=== PATIENT | female | born 1940 | race Caucasian/White ===

== ENCOUNTER 2017-07-01 13:20 | Emergency (ER) | payer OTHER ==
[2017-07-01 13:28] VITALS: BMI 20.5
--- NOTE | 2017-07-01 14:52 | PDOC ---
Attending Attestation - HPI HPI: 07/01/17 15:51 Pt is a 77 yo F (poor historian) with a PMHx of COPD, Anemia, Dementia who presents to the ED with generalized weakness and dizziness. Patient is accompanied by daughter who states the patient has been more off balance and has been complaining of vertiginous like symptoms. Patients daughter is highly concerned and presents with patient to the ED for further evaluation. PCP: None - Physicial Exam PE: 07/01/17 15:51 GENERAL: Awake, alert, and fully oriented, in no acute distress HEAD: No signs of trauma EYES: PERRLA, EOMI, sclera anicteric, conjunctiva clear ENT: Auricles normal inspection, hearing grossly normal, nares patent, oropharynx clear without exudates. Moist mucosa NECK: Normal ROM, supple, no lymphadenopathy, JVD, or masses LUNGS: Breath sounds equal, clear to auscultation bilaterally. No wheezes, and no crackles HEART: Regular rate and rhythm, normal S1 and S2, no murmurs, rubs or gallops ABDOMEN: Soft, nontender, normoactive bowel sounds. No guarding, no rebound. No masses EXTREMITIES: Normal range of motion, no edema. No clubbing or cyanosis. No cords, erythema, or tenderness NEUROLOGICAL: Cranial nerves II through XII grossly intact. Normal speech, normal gait SKIN: Warm, Dry, normal turgor, no rashes or lesions noted. - Medical Decision Making 07/01/17 15:51 Documentation prepared by Diamante Beltrán, acting as medical claims assistant for Chelly Kiser DO <Diamante Beltrán - Last Filed: 07/01/17 16:44> - Resident Resident Name: Shaun Sanchez - ED Attending Attestation I have performed the following: I have examined & evaluated the patient, The case was reviewed & discussed with the resident, I agree w/resident's findings & plan, Exceptions are as noted - Medical Decision Making 07/01/17 14:52 I, Dr. Chelly Kiser DO, attest that this document has been prepared under my direction and personally reviewed by me in its entirety. I further attest, that it accurately reflects all work, treatment, procedures and medical decision -making performed by me. 07/01/17 17:24 a/p: 77yo female with dizziness, and hyperacusis on friday -off balance since -no focal neuro today -suspect metabolic derangement worsening neuro findings -will obtain labs, ua, head ct <Chelly Kiser - Last Filed: 07/01/17 17:25>
--- NOTE | 2017-07-01 15:13 | PDOC ---
History of Present Illness - General Chief Complaint: Weakness Stated Complaint: DIZZINESS Time Seen by Provider: 07/01/17 14:03 - History of Present Illness Initial Comments: 07/01/17 15:02 Pt is a 77 F with extensive PMH significant for COPD, dementia, gastric ulcer, anemia, "kidney problems", CAD who presents to ED accompanied by daughter-in- law with complaint of leg weakness and vertigo. Pt is a poor historian. Pt states she has had vertigo for years but it has been worse lately. She describes the room spinning intermittently throughout the day, but worse in the morning. Pt denies ringing of the ears, falls, fainting, seizures. Pt states her leg weakness has been ongoing for months/years but has worsened in the past few weeks. Per daughter in law, pt was more "wobbly on her feet" Sun when they went shopping. Pt called daughter in law this am because she was feeling weak and dizzy, and daughter in law felt pt was not herself and needed to come to ED. Past History - Past Medical History Allergies/Adverse Reactions: Allergies Allergy/AdvReac Type Severity Reaction Status Date / Time Sulfa (Sulfonamide Allergy Verified 07/01/17 13:23 Antibiotics) Home Medications: Ambulatory Orders Aspirin [ASA -] 81 mg PO DAILY 07/01/17 Dipyridamole 25 mg PO DAILY 07/01/17 Donepezil HCl [Aricept] 10 mg PO HS 07/01/17 Escitalopram Oxalate [Lexapro -] 10 mg PO DAILY 07/01/17 Ferrous Sulfate 325 mg PO DAILY 07/01/17 Pravastatin Sodium [Pravachol (Nf)] 40 mg PO HS 07/01/17 COPD: Yes Dementia: Yes GI Disorders: Yes (ULCER) - Surgical History GI Surgery: Yes - Suicide/Smoking/Psychosocial Hx Smoking History: Current every day smoker Have you smoked in the past 12 months: Yes Number of Cigarettes Smoked Daily: 20 Information on smoking cessation initiated: No Review of Systems - Review of Systems Able to Perform ROS?: Yes Is the patient limited Khmer proficient: No Constitutional: Yes: Symptoms Reported, See HPI, Weakness. No: Chills, Diaphoresis, Loss of Appetite, Malaise, Night Sweats HEENTM: Yes: Symptoms Reported, See HPI. No: Blurred Vision, Tearing, Recent change in vision, Double Vision Respiratory: Yes: Symptoms reported, See HPI, Shortness of Breath, SOB with Exertion. No: Cough, Wheezing Cardiac (ROS): Yes: Symptoms Reported, See HPI. No: Chest Pain, Irregular Heart Rate, Lightheadedness, Syncope, Chest Tightness ABD/GI: Yes: Symptoms Reported. No: Diarrhea, Difficulty Swallowing, Poor Fluid Intake, Vomiting : Yes: Symptoms Reported. No: Burning, Dysuria, Discharge, Frequency, Flank Pain, Hematuria Musculoskeletal: Yes: Symptoms Reported, Joint Pain, Muscle Weakness. No: Gout , Joint Swelling, Joint Stiffness Neurological: Yes: Symptoms reported, See HPI, Headache, Weakness, Unsteady Gait , Dizziness (vertigo). No: Seizure, Tingling, Tremors, Ataxia, Other *Physical Exam - Vital Signs Last Vital Signs Temp Pulse Resp BP Pulse Ox 97.9 F 69 19 151/95 98 07/01/17 13:24 07/01/17 13:24 07/01/17 13:24 07/01/17 13:24 07/01/17 13:24 - Physical Exam General Appearance: Yes: Appropriately Dressed (wearing 2 coats. Pt states she feels very cold) HEENT: positive: NIKHIL, Normal ENT Inspection, Normal Voice. negative: Pale Conjunctivae Neck: positive: Trachea midline, Normal Thyroid, Supple. negative: Tender, Carotid bruit Respiratory/Chest: positive: Lungs Clear, Normal Breath Sounds. negative: Chest Tender, Respiratory Distress, Accessory Muscle Use Cardiovascular: positive: Regular Rhythm, Regular Rate, S1, S2. negative: Edema , JVD, Murmur Vascular Pulses: Dorsalis-Pedis (R): 1+, Doralis-Pedis (L): 2+ Gastrointestinal/Abdominal: positive: Normal Bowel Sounds, Flat, Soft. negative : Tender, Organomegaly, Pulsatile Mass, Increased Bowel Sounds Musculoskeletal: positive: Normal Inspection (no cogwheel/clasp knife) Extremity: positive: Normal Capillary Refill, Normal Inspection, Normal Range of Motion Neurologic: positive: home visit field care manager II-XII NML intact, Fully Oriented, Alert, Normal Mood/ Affect, Normal Response, Motor Strength /5 ED Treatment Course - LABORATORY CBC & Chemistry Diagram: 07/01/17 15:50 07/01/17 15:50 Medical Decision Making - Medical Decision Making 07/01/17 15:34 Pt is a 77 F poor historian w/ PMH COPD, dementia, gastric ulcer, anemia, unclear hx of renal disease, and CAD who presented to ED after 2 days of increased vertigo, and increased weakness of the legs. #r/o infectious etiology -CBC -CMP -UA/UCx #r/o arrhythmia -EKG #r/o Thyroid deficiency -TFTs #Dementia with weakness -head CT 07/01/17 18:[address] negative, Chem wnl Pt to be D/c'ed home with instructions to follow up with PCP. Pt and family agree that they will follow up. *DC/Admit/Observation/Transfer Diagnosis at time of Disposition: Vertigo, Weakness - Discharge Dispostion Disposition: HOME Admit: No - Referrals Referrals: Librado Leung MD [Staff Physician] - - Patient Instructions Printed Discharge Instructions: Vertigo, DI for Muscle Weakness Additional Instructions: Please make sure you follow up with your primary care doctor. You can see Dr. Librado Leung at the [facility]. [facility], [address]st [place] [address] Please make sure you take all of your prescription medications as directed. If your symptoms get worse or if you develop new symptoms, please return to the emergency department. - Post Discharge Activity
[2017-07-01 16:07] LABS: BASO % 1.2 % (0-2.0); EOS % 1.5 % (0-4.5); MCH 30.7 pg (25.7-33.7); MCHC 33.2 g/dl (32.0-36.0); MEAN CELL VOLUME 92.5 fl (80-96); MEAN PLT VOLUME 8.5 fl (7.5-11.1); NEUT % 73.2 % (42.8-82.8); PLATELET COUNT 338 K/MM3 (134-434); RDW 13.8 % (11.6-15.6); WHITE BLOOD COUNT 8.4 K/mm3 (4.0-10.0)
[2017-07-01 16:09] LABS: URINE APPEARANCE SLCLOUDY; URINE BILIRUBIN NEGATIVE (NEGATIVE); URINE BLOOD 1+ (NEGATIVE); URINE COLOR YELLOW; URINE GLUCOSE (UA) NEGATIVE (NEGATIVE); URINE KETONE NEGATIVE (NEGATIVE); URINE LEUK ESTERASE TRACE (NEGATIVE); URINE NITRITE NEGATIVE (NEGATIVE); URINE PROTEIN NEGATIVE (NEGATIVE); URINE UROBILINOGEN NEGATIVE mg/dL (0.2-1.0)
[2017-07-01 16:33] LABS: ALBUMIN 3.9 g/dl (3.4-5.0); ALK PHOS 85 U/L (45-117); ANION GAP 8 (8-16); BILIRUBIN,TOTAL 0.5 mg/dL (0.2-1.0); CALCIUM 9.7 mg/dL (8.5-10.1); CO2 31 mmol/L (21-32); CREATININE 0.9 mg/dL (0.55-1.02); GLUCOSE,RANDOM 83 mg/dL (74-106); MAGNESIUM 2.2 mg/dL (1.8-2.4); PHOSPHOROUS 3.8 mg/dL (2.5-4.9); SGOT/AST 33 U/L (15-37); SGPT/ALT 20 U/L (12-78)
[2017-07-01 16:39] LABS: FREE T4 1.03 ng/dl (0.76-1.46); THYROID STIMULATING HORMONE 2.52 uIU/ml (0.358-3.74)
[2017-07-01 17:57] LABS: URINE BACTERIA RARE /hpf (NONE SEEN); URINE MUCUS RARE; URINE RBC 10 /hpf (0-3); URINE WBC 1 /hpf (3-5)
[2017-07-01 18:50] VITALS: BP 120/74; PULSE 86; TEMP 97.7
[2017-07-01 19:47] LABS: CPK 314 IU/L (26-192); TROPONIN I < 0.02 ng/ml (0.00-0.05)
[2017-07-01 20:59] LABS: URINE LEUK ESTERASE TRACE (NEGATIVE)
--- NOTE | 2017-07-02 11:20 | EKG ---
Test Reason : Blood Pressure : / mmHG Vent. Rate : 064 BPM Atrial Rate : 064 BPM P-R Int : 168 ms QRS Dur : 074 ms QT Int : 410 ms P-R-T Axes : 054 009 038 degrees QTc Int : 422 ms NORMAL SINUS RHYTHM NONSPECIFIC T WAVE ABNORMALITY ABNORMAL ECG WHEN COMPARED WITH ECG OF 01-JUL-2017 15:53, NO SIGNIFICANT CHANGE WAS FOUND Confirmed by DEVANG SORIANO MD ([id number]) on 07/02/2017 11:20:22 AM Referred By: Confirmed By:DEVANG SORIANO MD
== END 2017-07-01 18:51 | disposition home or self-care (01) ==
LOC: JER 13:20
DX: M62.81 Muscle weakness (generalized) (principal); R42 Dizziness and giddiness; J44.9 Chronic obstructive pulmonary disease, unspecified; I25.10 Atherosclerotic heart disease of native coronary artery without angina pectoris; N28.9 Disorder of kidney and ureter, unspecified; F03.90 Unspecified dementia, unspecified severity, without behavioral disturbance, psychotic disturbance, mood disturbance, and anxiety
CPT/HCPCS: 36415; 70450-TC; 80053; 81003; 81015; 82550; 82553; 83735; 84100; 84439; 84443; 84481; 84484; 85025; 87086; 93005; 93010; 99285-25

== ENCOUNTER 2017-07-19 10:50 | Emergency (ER) | payer OTHER ==
[2017-07-19 11:04] VITALS: BMI 20.1
--- NOTE | 2017-07-19 11:52 | PDOC ---
History of Present Illness - General Chief Complaint: Pain Stated Complaint: ABD PAIN Time Seen by Provider: 07/19/17 11:02 - History of Present Illness Initial Comments: 07/19/17 12:01 The patient is a 77 year old female with history signficant for gastric ulcers and dementia who presents to the ED complaining of several weeks of diffuse abdominal pain, worst in the epigastrium. The patient was seen in the ED on . She states that she was started on omeprazole at that time but her prescription has since lapsed and she has not been able to get a refill from her doctor. She has subsequently had worsening of her abdominal pain. No fever or chills. No nausea, vomiting, or diarrhea. No chest pain or shortness of breath. Pt has not had f/u with GI, has not had recent EGD or colonoscopy. Past History - Past Medical History Allergies/Adverse Reactions: Allergies Allergy/AdvReac Type Severity Reaction Status Date / Time Sulfa (Sulfonamide Allergy Verified 07/19/17 11:04 Antibiotics) Home Medications: Ambulatory Orders Aspirin [ASA -] 81 mg PO DAILY 07/01/17 Dipyridamole 25 mg PO DAILY 07/01/17 Donepezil HCl [Aricept] 10 mg PO HS 07/01/17 Escitalopram Oxalate [Lexapro -] 10 mg PO DAILY 07/01/17 Ferrous Sulfate 325 mg PO DAILY 07/01/17 Meclizine HCl [Antivert -] 12.5 mg PO QID #28 tablet 07/01/17 Omeprazole 10 mg PO DAILY #7 capsule. 07/01/17 Pravastatin Sodium [Pravachol (Nf)] 40 mg PO HS 07/01/17 Omeprazole 20 mg PO DAILY #30 tablet. 07/19/17 COPD: Yes Dementia: Yes GI Disorders: Yes (ULCER) - Surgical History GI Surgery: Yes - Suicide/Smoking/Psychosocial Hx Smoking History: Current every day smoker Have you smoked in the past 12 months: Yes Number of Cigarettes Smoked Daily: 20 Information on smoking cessation initiated: No Review of Systems - Review of Systems Comments:: 07/19/17 12:03 "GENERAL/CONSTITUTIONAL: No fever or chills. HEAD, EYES, EARS, NOSE AND THROAT: No change in vision. No ear pain or discharge. No sore throat. CARDIOVASCULAR: No chest pain or shortness of breath. RESPIRATORY: No cough, wheezing, or hemoptysis. GASTROINTESTINAL: +Diffuse abdominal pain, worst in epigastrium. No nausea, vomiting, diarrhea or constipation. GENITOURINARY: No dysuria, frequency, or change in urination. MUSCULOSKELETAL: No joint or muscle swelling or pain. No neck or back pain. SKIN: No rash NEUROLOGIC: No headache, vertigo, loss of consciousness, or change in strength/ sensation. ENDOCRINE: No increased thirst. No abnormal weight change. HEMATOLOGIC/LYMPHATIC: No anemia, easy bleeding, or history of blood clots. ALLERGIC/IMMUNOLOGIC: No hives or skin allergy. " *Physical Exam - Vital Signs Last Vital Signs Temp Pulse Resp BP Pulse Ox 97.7 F 67 18 136/93 97 07/19/17 11:00 07/19/17 11:00 07/19/17 11:00 07/19/17 11:00 07/19/17 11:00 - Physical Exam Comments: 07/19/17 12:03 "GENERAL: Awake, alert, and fully oriented, in no acute distress HEAD: No signs of trauma EYES: PERRLA, EOMI, sclera anicteric, conjunctiva clear ENT: Auricles normal inspection, hearing grossly normal, nares patent, oropharynx clear without exudates. Moist mucosa NECK: Nontender, no stepoffs, Normal ROM, supple, no lymphadenopathy, JVD, or masses LUNGS: Breath sounds equal, clear to auscultation bilaterally. No wheezes, and no crackles HEART: Regular rate and rhythm, normal S1 and S2, no murmurs, rubs or gallops ABDOMEN: +Epigastric tenderness to palpation. Negative zhou's, no CVAT. Soft, normoactive bowel sounds. No guarding, no rebound. No masses EXTREMITIES: Normal range of motion, no edema. No clubbing or cyanosis. No cords, erythema, or tenderness NEUROLOGICAL: Cranial nerves II through XII intact. 5/5 strength and sensation in all extremities, Normal speech, normal gait SKIN: Warm, Dry, normal turgor, no rashes or lesions noted. " ED Treatment Course - LABORATORY CBC & Chemistry Diagram: 07/19/17 11:45 07/19/17 11:45 - RADIOLOGY Radiology Studies Ordered: Category Date Time Status ABDOMEN & PELVIS CT WITH CONTR [CT] Stat CT Scan 07/19/17 11:30 Ordered Medical Decision Making - Medical Decision Making 07/19/17 12:03 77 F with h/o gastric ulcers presenting with epigastric pain. Likely 2/2 PUD. Pt with no lower abdominal tenderness to suggest appy or colitis. No RUQ pain to suggest tessy. - Labs - CTAP - GI cocktail 07/19/17 18:02 CT with thickening of stomach - gastritis vs malignancy. Discussed results with pt, who agrees to f/u with GI. Pt well appearing with improved pain s/p GI cocktail. Vitals normal. Clinically stable for DC at this time. I discussed the physical exam findings, ancillary test results and final diagnoses with the patient. I answered all of the patient's questions. The patient was satisfied with the care received and felt comfortable with the discharge plan and treatment plan. The patient agrees to follow up with the primary care physician within 24-72 hours. *DC/Admit/Observation/Transfer Diagnosis at time of Disposition: Gastritis - Discharge Dispostion Disposition: HOME - Prescriptions Prescriptions: Omeprazole 20 mg PO DAILY #30 tablet.dr - Referrals Referrals: Matty Rizo MD [Staff Physician] - - Patient Instructions Printed Discharge Instructions: DI for Gastritis Additional Instructions: You must follow up with a GI specialist as soon as possible. Your CT scan today showed thickening of your stomach wall, which could represent gastritis but could also be a sign of cancer. You will need an endoscopy with a biopsy to further evaluate this. If you experience worsening pain, nausea, vomiting, or any other concerning symptoms, return to the ER immediately. - Post Discharge Activity - Attestations Physician Attestion: 07/19/17 18:05 I, Dr. Pete Andrea MD, attest that this document has been prepared under my direction and personally reviewed by me in its entirety. I further attest, that it accurately reflects all work, treatment, procedures and medical decision -making performed by me.
[2017-07-19] MEDS ORDERED: ONDANSETRON 4 MG TABLET PO ONE (12:06)
[2017-07-19] MEDS ORDERED: FAMOTIDINE 20 MG/50 ML IVPB 20 MG/50 ML MG IVPB ONE (12:06)
[2017-07-19] MEDS ORDERED: MAG HYDROX/AL HYDROX/SIMETH 30 ML UNIT-DOSE CUP PO ONE (12:06)
[2017-07-19] MEDS ORDERED: MAG HYDROX/AL HYDROX/SIMETH 30 ML UNIT-DOSE CUP ONE (12:12)
[2017-07-19] MEDS ORDERED: ONDANSETRON *ODT* 4 MG TABLET ONE (12:12)
[2017-07-19 12:21] LABS: EOS % 2.1 % (0-4.5); HEMATOCRIT 45.9 % (32.4-45.2); HEMOGLOBIN 15.1 GM/dL (10.7-15.3); LYMPH % 14.6 % (8-40); MCH 30.3 pg (25.7-33.7); MEAN CELL VOLUME 92.1 fl (80-96); MEAN PLT VOLUME 8.4 fl (7.5-11.1); MONO % 7.9 % (3.8-10.2); NEUT % 74.4 % (42.8-82.8); PLATELET COUNT 315 K/MM3 (134-434); RBC 4.99 M/mm3 (3.60-5.2); RDW 13.6 % (11.6-15.6); WHITE BLOOD COUNT 6.4 K/mm3 (4.0-10.0)
[2017-07-19 12:32] LABS: INR 0.98 (0.82-1.09); PROTHROMBIN TIME (PATIENT) 11.1 SEC (9.98-11.88)
[2017-07-19 12:35] LABS: ACTIVATED PTT 40.6 SECONDS (26.9-34.4)
[2017-07-19 12:46] LABS: ALBUMIN 4.1 g/dl (3.4-5.0); ANION GAP 6 (8-16); BLOOD UREA NITROGEN 14 mg/dL (7-18); CALCIUM 9.9 mg/dL (8.5-10.1); CHLORIDE 101 mmol/L (98-107); CO2 30 mmol/L (21-32); CREATININE 0.8 mg/dL (0.55-1.02); GLUCOSE,RANDOM 85 mg/dL (74-106); LIPASE 193 U/L (73-393); POTASSIUM 3.7 mmol/L (3.5-5.1); SGOT/AST 48 U/L (15-37); SGPT/ALT 24 U/L (12-78); SODIUM 137 mmol/L (136-145)
[2017-07-19 12:48] LABS: ALK PHOS 93 U/L (45-117); BILIRUBIN,TOTAL 0.6 mg/dL (0.2-1.0); TOT PROT 8.3 g/dl (6.4-8.2)
[2017-07-19 13:43] LABS: URINE APPEARANCE CLEAR; URINE BILIRUBIN NEGATIVE (NEGATIVE); URINE BLOOD 1+ (NEGATIVE); URINE COLOR STRAW; URINE GLUCOSE (UA) NEGATIVE (NEGATIVE); URINE KETONE NEGATIVE (NEGATIVE); URINE LEUK ESTERASE NEGATIVE (NEGATIVE); URINE NITRITE NEGATIVE (NEGATIVE); URINE PROTEIN NEGATIVE (NEGATIVE); URINE UROBILINOGEN NEGATIVE mg/dL (0.2-1.0)
[2017-07-19 13:47] LABS: URINE BACTERIA RARE /hpf (NONE SEEN)
[2017-07-19 17:23] VITALS: BP 135/79; PULSE 66; TEMP 98.2
--- NOTE | 2017-07-21 22:04 | EKG ---
Test Reason : Blood Pressure : / mmHG Vent. Rate : 060 BPM Atrial Rate : 060 BPM P-R Int : 154 ms QRS Dur : 074 ms QT Int : 428 ms P-R-T Axes : 089 052 073 degrees QTc Int : 428 ms NORMAL SINUS RHYTHM NONSPECIFIC T WAVE ABNORMALITY ABNORMAL ECG WHEN COMPARED WITH ECG OF 01-JUL-2017 15:53, T WAVE VARIATION Confirmed by IRINA CARVAJAL MD ([id number]) on 07/21/2017 10:04:18 PM Referred By: Confirmed By:IRINA CARVAJAL MD
== END 2017-07-19 18:10 | disposition home or self-care (01) ==
LOC: JER 10:50
DX: K29.70 Gastritis, unspecified, without bleeding (principal); F03.90 Unspecified dementia, unspecified severity, without behavioral disturbance, psychotic disturbance, mood disturbance, and anxiety; J44.9 Chronic obstructive pulmonary disease, unspecified; F17.210 Nicotine dependence, cigarettes, uncomplicated; Z87.19 Personal history of other diseases of the digestive system
CPT/HCPCS: 36415; 74177-TC; 80053; 81003; 81015; 82550; 82553; 83605; 83690; 84484; 85025; 85610; 85730; 87086; 93005; 93010; 99284-25